=== PATIENT | male | born 1975 | race Caucasian/White ===

== ENCOUNTER → 2016-09-16 | Day surgery (SDC) | payer OTHER | END | disposition home or self-care (01) | LOC: FAS 09:48 | DX: M77.11 Lateral epicondylitis, right elbow (principal); I10 Essential (primary) hypertension; F17.210 Nicotine dependence, cigarettes, uncomplicated; F90.9 Attention-deficit hyperactivity disorder, unspecified type; Z90.89 Acquired absence of other organs; Z98.890 Other specified postprocedural states | CPT/HCPCS: 71010; J1170; J2704; J3010 ==